=== PATIENT | female | born 1965 | race Caucasian/White ===

== ENCOUNTER 2016-12-03 21:16 | Inpatient (IN) | payer OTHER ==
[~2016-12-03] VITALS: Ht 175.3 cm; Wt 93.9 kg
[2016-12-03] MEDS ORDERED: CYMBALTA20 MG PO (21:34)
[2016-12-03] MEDS ORDERED: DULOXETINE HCL30 MG PO (23:51)
[2016-12-03] MEDS ORDERED: ADVIL200 MG PO (23:53)
[2016-12-04] VITALS (7 sets, daily range): BP systolic 103–125; BP diastolic 57–68
[2016-12-04 09:31] LABS: EOSINOPHIL (%) 1.5 % (0-5); EOSINOPHIL COUNT 0.1 K/uL (0-0.3); IMMATURE GRANULOCYTE (%) 0.4 % (0.0-0.7); INSTRUMENT ABS NEUTROPHIL CT 5.8 K/uL; LYMPHOCYTE COUNT 1.7 K/uL (1.0-2.8); MCH 31.5 PG (29.0-34.0); MCHC 33.3 G/DL (30.0-36.0); MCV 94.4 FL (83-99); MONOCYTE COUNT 0.5 K/uL (0-0.8); NEUTROPHIL (%) 70.7 % (45-76); NEUTROPHIL COUNT 5.8 K/uL (1.8-6.4); PLATELET COUNT 173 K/uL (156-360); RBC DIS.WIDTH-CV 13.2 % (11.8-14.6); RBC DIS.WIDTH-SD 45.1 % (39-53); RED BLOOD COUNT 4.13 M/uL (3.80-5.20); WHITE BLOOD COUNT 8.2 K/uL (4.1-10.2)
[2016-12-04 09:58] LABS: ANION GAP 8 MEQ/L (2-14); CHLORIDE 110 MEQ/L (99-109); GFR ESTIMATE (CALCULATED) > 59 mL/min/; GLUCOSE 77 mg/dL (70-99); POTASSIUM 4.2 MEQ/L (3.7-5.4); SAMPLE HEMOLYSIS CHECK 1; SAMPLE ICTERIC CHECK 0; SAMPLE LIPEMIA CHECK 0; SODIUM 141 MEQ/L (136-147); UREA NITROGEN (BUN) 13 mg/dL (9-23)
[2016-12-05 03:10] VITALS: BP 109/58
[2016-12-05 07:43] VITALS: BP 120/57
[2016-12-05 11:41] VITALS: BP 123/61
[2016-12-05 15:52] VITALS: BP 118/59
[2016-12-05 23:24] VITALS: BP 120/57
[2016-12-06 04:34] VITALS: BP 125/59
[2016-12-06 08:25] VITALS: BP 108/61
[2016-12-06] MEDS ORDERED: ENDOCET 5-3251 EACH PO (09:09)
== END 2016-12-06 10:23 | disposition home or self-care (01) | DRG 494 ==
LOC: EME 21:16 → 3EAST 23:23 → EDOF 23:23 → ENRESERV 23:24 → EDOF 12-04 00:46 → 3EAST 12-04 00:54
PROVIDERS: Orthopaedic Surgery
PROC: 0QSG36Z Reposition Right Tibia with Intramedullary Internal Fixation Device, Percutaneous Approach (ICD-10-PCS; principal; 2016-12-03)
DX: S82.241A Displaced spiral fracture of shaft of right tibia, initial encounter for closed fracture (principal); S82.831A Other fracture of upper and lower end of right fibula, initial encounter for closed fracture; W10.9XXA Fall (on) (from) unspecified stairs and steps, initial encounter; E66.9 Obesity, unspecified; Z68.30 Body mass index [BMI] 30.0-30.9, adult
CPT/HCPCS: 73590; 76000; 80048; 85025; 85027; 93005; 99281; 99285; C1713; J0690; J1170; J1650; J1885; J2250; J3010; J7030; J7120

== ENCOUNTER → 2017-05-26 | Outpatient (CLI) | payer OTHER ==
[~2017-05-26] VITALS: Ht 175.3 cm; Wt 94.3 kg
[~2017-05-26] MED LIST: ADVIL200 MG PO; CYMBALTA20 MG PO; CYMBALTA30 MG PO; DESYREL 150 MG150 MG PO; DULOXETINE HCL30 MG PO; ENDOCET 5-3251 EACH PO
== END | disposition home or self-care (01) ==
LOC: AMB 10:22
PROC: 0DBL8ZX Excision of Transverse Colon, Via Natural or Artificial Opening Endoscopic, Diagnostic (ICD-10-PCS; principal; 2017-05-26)
DX: Z12.11 Encounter for screening for malignant neoplasm of colon (principal); K63.5 Polyp of colon; F41.8 Other specified anxiety disorders; R00.1 Bradycardia, unspecified
CPT/HCPCS: 88305; J2250